=== PATIENT | male | born 1970 | race Hispanic/Latino ===

== ENCOUNTER 2024-07-25 05:41 | Emergency (ER) | payer BC, SELFPAY ==
[2024-07-25] VITALS (7 sets, daily range): BP systolic 147–166; BP diastolic 89–95; BMI 24.2
--- NOTE | 2024-07-25 06:37 | ED.GENMED ---
History of Present Illness
General
Chief Complaint: Blood Pressure Problem
Source: patient
Exam Limitations: none
Time Seen by Provider: 07/25/24 06:06
Nursing documentation reviewed up to this point in time: agreed with
History of Present Illness
History of Present Illness:
54-year-old male history of hypertension presents with right-sided headache worse at night, onset 3 to 4 days ago recent sinus congestion with sinus drainage she thought was allergies, pain is on the right side right posterior behind his right eye,
no fevers, no photophobia no vomiting no rash although he did say he was bitten by something in his singh a few weeks ago
Past History
Past History
ED Past Medical History: HTN
ED Past Surgical History: None
Social History
Tobacco: Non-smoker
Alcohol: None
Drug: None
Personal:
Living: with family
Employment: Employed
Review of Systems
Review of Systems
All Other Systems: Not applicable
Constitutional: Reports sleep disturbance; Denies fever or fatigue
EENT: Reports no symptoms
Respiratory: Reports no symptoms
Cardiac: Reports no symptoms; Denies chest pain, diaphoresis, palpitations or syncope
ABD/GI: Reports no symptoms; Denies abdominal pain, nausea or vomiting
: Reports no symptoms
Musculoskeletal: Reports no symptoms
Neurological: Reports headache; Denies dizzy or numbness
Phy Exam
Physical Exam
Physical Exam:
Physical Exam
General: 54 male nontender
Neck: No pain with flexion of the neck no photophobia no pain over the mass
Heart: s1/s2 regular rate and rhythm, no murmur. equal radial pulses.
Lungs: no acute respiratory distress. clear bilaterally
Abdomen: Nontender
Neuro: alert and oriented. no focal neurological deficits
Skin: Less than hugo size area of erythema left anterior singh
Psychiatric: well kept. interactive and cooperative
Extremities: No calf
Course
Orders/Labs/Results
Orders:
Orders
07/25/24 05:53
ECG [Electrocardiogram (*1)] Urgent
Reason for Study: Hypertension, Benign
Cardiology Consult: Unknown
Complete Blood Count/With Diff Urgent
Comprehensive Metabolic Panel Urgent
07/25/24 05:54
EKG- Treatment ONCE
07/25/24 06:31
CT Head W/o Iv Contrast Urgent
Comment:
Reason For Exam: hadache
CT Sinuses W/o Iv Contrast Urgent
Comment:
Reason For Exam: sius congestion
07/25/24 06:32
Ibuprofen [Motrin] 600 mg PO NOW STA
Metoclopramide [Reglan] 10 mg PO NOW STA
07/25/24 06:37
Add On- LAB Urgent
Tests Added?: lyme progressive
Vital Signs
Initial and Last Documented VS:
Initial Vital Signs
Temp Pulse Resp BP Pulse Ox
98.3 F 81 20 153/92 97
07/25/24 05:49 07/25/24 05:49 07/25/24 05:49 07/25/24 05:49 07/25/24 05:49
Last Documented Vital Signs
Temp Pulse Resp BP Pulse Ox
98.3 F 81 20 153/92 97
07/25/24 05:49 07/25/24 05:49 07/25/24 05:49 07/25/24 05:49 07/25/24 05:49
MDM/Problems Addressed
Differential Diagnosis Includes:
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
MDM/Problems Addressed:
Headache
Chronic conditions affecting care: HTN
Acute Exacerbation and/or Progression of Chronic Illness: HTN
*EKG
Interpreted by ED Provider?: Yes
Interpretation: abnormal
Comparison EKG: no comparison EKG present
Heart Rate: 78
Rate: normal
Rhythm: sinus
Ischemia: ST depression
*Chiropractic Teacher Interpretation
Rate: normal
Interpretation: normal
Heart Rate: 78
Rhythm: sinus
*Critical Care Note
Total Time (30-74mins, 75-104mins- exclusive of procedures): Not Applicable
ED Attending Note
-
Portions of this chart may have been created with voice recognition software.� Occasional wrong word or��sound alike� substitutions may have occurred due to the inherent limitations of voice recognition software.
Discharge Plan
Departure
Prescriptions:
No Action
potassium chloride 10 mEq Capsule, Extended Release
10 meq PO DAILY
amlodipine 10 mg Tablet
10 mg PO DAILY
pravastatin 20 mg Tablet
20 mg PO DAILY
metoprolol succinate 25 mg Tablet Extended Release 24 Hr
25 mg PO DAILY
lisinopril 40 mg Tablet
40 mg PO DAILY
Referrals:
UNKNOWN - PT DOES,NOT KNOW [Family Provider] -
Interventions
Interventions:
*Risk Screen - Suicide Last Done: 07/25/24 05:49
*General Assessment Last Done: 07/25/24 05:49
*Neglect/Abuse Screening Last Done: 07/25/24 05:49
*ED- Fall Risk Assessment Last Done: 07/25/24 05:49
*ED COVID-19 Vaccine History Last Done: 07/25/24 05:49
ED- Cardiac Assessment Last Done: 07/25/24 06:00
ED- Neurological Assessment Last Done: 07/25/24 06:00
ED- Pulmonary Assessment Last Done: 07/25/24 06:00
Discharge Date and Time
Print Language: BULGARIAN
[2024-07-25] MEDS: MOTRIN 600 MG PO (06:50)
[2024-07-25] MEDS: REGLAN 10 MG PO (06:51)
[2024-07-25 06:58] LABS: % Basophils 1.3 % (0-2); % Eosinophils 3.6 % (0-6); % Immature Granulocytes 0.1 % (0-0.5); % Lymphocytes 22.9 % (20.5-51.1); % Monocytes 8.5 % (1.7-9.3); % Neutrophils 63.6 % (42.2-75.2); Absolute Basophils 0.1 10^3/uL (0-0.2); Absolute Eosinophils 0.3 10^3/uL (0-0.7); Absolute Lymphocytes 1.7 10^3/uL (1.2-3.4); Absolute Monocytes 0.6 10^3/uL (0.1-0.6); Absolute Neutrophils 4.7 10^3/uL (1.4-6.5); Hematocrit 37.1 % (39.0-52.0); Hemoglobin 13.9 g/dL (13.0-18.0); Mean Corp Hgb Conc. 37.5 g/dL (33.0-37.0); Mean Corpuscular Hgb 29.4 pg (27.0-31.0); Mean Corpuscular Volume 78.4 fL (80.0-94.0); Mean Platelet Volume 10.9 fL (7.4-10.4); Nucleated Red Blood Cells % 0 % (-); Platelet Count 175 10^3/uL (130-400); Red Blood Cell Count 4.73 10^6/uL (4.70-6.10); Red Cell Dist. Width 12.6 % (11.5-14.5); White Blood Cell Count 7.4 10^3/uL (4.8-10.8)
[2024-07-25 07:20] LABS: ALT (SGPT) 21 U/L (0-50); AST (SGOT) 24 U/L (17-59); Alkaline Phosphatase 64 U/L (38-126); Blood Urea Nitrogen 15 mg/dl (9-20); Calcium 9.6 mg/dl (8.4-10.2); Carbon Dioxide 28 mmol/L (22-30); Chloride 101 mmol/L (98-107); Estimated Creatinine Clearance 115 ml/min; Glucose 201 mg/dl (70-99); Potassium 3.1 mmol/L (3.5-5.1); Sodium 145 mmol/L (135-145); Total Bilirubin 0.8 mg/dl (0.2-1.3); Total Protein 7.5 g/dl (6.3-8.2); eGFR > 60.00
--- NOTE | 2024-07-25 08:48 | ED.GENMED ---
History of Present Illness
General
Chief Complaint: Blood Pressure Problem
Time Seen by Provider: 07/25/24 06:06
Past History
Past History
ED Past Medical History: HTN
ED Past Surgical History: None
Social History
Tobacco: Non-smoker
Alcohol: None
Drug: None
Personal:
Living: with family
Employment: Employed
Course
Orders/Labs/Results
Orders:
Orders
07/25/24 05:53
ECG [Electrocardiogram (*1)] Urgent
Reason for Study: Hypertension, Benign
Cardiology Consult: Unknown
07/25/24 05:54
EKG- Treatment ONCE
07/25/24 06:31
CT Head W/o Iv Contrast Urgent
Comment:
Reason For Exam: hadache
CT Sinuses W/o Iv Contrast Urgent
Comment:
Reason For Exam: sius congestion
07/25/24 06:32
Ibuprofen [Motrin] 600 mg PO NOW STA
Metoclopramide [Reglan] 10 mg PO NOW STA
07/25/24 06:37
Add On- LAB Urgent
Tests Added?: lyme progressive
07/25/24 06:43
Complete Blood Count/With Diff Urgent
Comprehensive Metabolic Panel Urgent
Lyme Progressive Urgent
Comment: ADD ON
07/25/24 08:48
Potassium Chloride [KCl] 40 meq PO NOW STA
Abnormal Lab Results
07/25/24
06:43
Hct 37.1 L %
(39.0-52.0)
MCV 78.4 L fL
(80.0-94.0)
MCHC 37.5 H g/dL
(33.0-37.0)
MPV 10.9 H fL
(7.4-10.4)
Potassium 3.1 L mmol/L
(3.5-5.1)
Glucose 201 H mg/dl
(70-99)
07/25/24 06:43
07/25/24 06:43
Vital Signs
Initial and Last Documented VS:
Initial Vital Signs
Temp Pulse Resp BP Pulse Ox
98.3 F 81 20 153/92 97
07/25/24 05:49 07/25/24 05:49 07/25/24 05:49 07/25/24 05:49 07/25/24 05:49
Last Documented Vital Signs
Temp Pulse Resp BP Pulse Ox
98.3 F 63 13 158/89 97
07/25/24 05:49 07/25/24 08:00 07/25/24 08:00 07/25/24 08:00 07/25/24 08:00
Update Note
Update Note:
8:45 AM patient resting comfortably states his headache is almost gone vision radiology reports reviewed
Labs noted will replete his potassium, encouraged him to follow-up with his PCP for fasting blood work his glucose was elevated
Lyme titers pending
ED Attending Note
-
Portions of this chart may have been created with voice recognition software.� Occasional wrong word or��sound alike� substitutions may have occurred due to the inherent limitations of voice recognition software.
Discharge Plan
Departure
Patient Disposition: Home (Routine Discharge)
Date of Disposition: 07/25/24
Time of Disposition: 08:49
Patient with high blood pressure during this ER visit?: Yes
Condition: Good
Instructions: High Blood Pressure (DC), Headache, Adult (DC)
Prescriptions:
New
metoclopramide HCl [Reglan] 10 mg tablet
10 mg PO Q6H PRN (Reason: headache) Qty: 20 0RF
ibuprofen 600 mg tablet
600 mg PO Q6H PRN (Reason: headache) Qty: 20 0RF
No Action
potassium chloride 10 mEq Capsule, Extended Release
10 meq PO DAILY
amlodipine 10 mg Tablet
10 mg PO DAILY
pravastatin 20 mg Tablet
20 mg PO DAILY
metoprolol succinate 25 mg Tablet Extended Release 24 Hr
25 mg PO DAILY
lisinopril 40 mg Tablet
40 mg PO DAILY
Referrals:
UNKNOWN - PT DOES,NOT KNOW [Family Provider] -
Activity Restrictions/Additional Instructions:
Call your primary care provider at [facility] system to arrange follow-up you were you need repeat blood work your blood sugar was slightly elevated today
Return to the ER if worsening symptoms
Interventions
Interventions:
*Risk Screen - Suicide Last Done: 07/25/24 05:49
*General Assessment Last Done: 07/25/24 05:49
*Neglect/Abuse Screening Last Done: 07/25/24 05:49
*ED- Fall Risk Assessment Last Done: 07/25/24 05:49
*ED COVID-19 Vaccine History Last Done: 07/25/24 05:49
ED- Cardiac Assessment Last Done: 07/25/24 08:10
ED- Neurological Assessment Last Done: 07/25/24 08:10
ED- Pulmonary Assessment Last Done: 07/25/24 06:00
Discharge Date and Time
Print Language: MOHAWK
[2024-07-25] MEDS: KCL 40 MEQ PO (09:17)
--- NOTE | 2024-07-25 09:25 | EDRN ---
Reviewed discharge instructions with patient. Verbalized understanding. Ambulated with steady gait to the lobby.
[2024-07-27 12:53] LABS: Lyme Antibody Screen, EIA Negative (Negative)
== END 2024-07-25 09:30 | disposition home or self-care (01) ==
LOC: EMR 05:41
PROVIDERS: Emergency Medicine; EMERGENCY PHYSICIAN Emergency Medicine
DX: R51.9 Headache, unspecified (principal); I10 Essential (primary) hypertension
CPT/HCPCS: 99284; 70450; 70486; 80053; 85025; 86618; 93005

== ENCOUNTER → 2025-03-17 09:47 | Outpatient (REF) | payer BC, SELFPAY | LOC: WDC 09:47 | PROVIDERS: ATTENDING PHYSICIAN Pharmacist | DX: N63.0 Unspecified lump in unspecified breast (principal) | CPT/HCPCS: 76642; 77062; 77066 ==